=== PATIENT | female | born 1960 | race Two or more races ===

== ENCOUNTER 2017-06-01 05:20 | Inpatient (IN) | payer OTHER ==
[~2017-06-01] VITALS: Ht 162.6 cm; Wt 76.2 kg
[2017-06-01] MEDS ORDERED: oxyCODONE HCL SR 10MG TAB.SR.12H PO ONE (06:20)
[2017-06-01] MEDS ORDERED: CELECOXIB 100 MG CAPSULE ONE (06:20)
[2017-06-01] MEDS ORDERED: ACETAMINOPHEN 325 MG TABLET ONE (06:20)
[2017-06-01] MEDS ORDERED: CEFAZOLIN SODIUM/DEXTROSE,ISO 50 ML IV ONE (06:30)
[2017-06-01] MEDS ORDERED: TRANEXAMIC ACID 3,000 MG in SODIUM CHLORIDE IRRIG SOLUTION 70 ML IR ONE (07:30)
[2017-06-01] MEDS ORDERED: KETOROLAC TROMETHAMINE INJ 30 MG/ML VIAL ONE (09:36)
[2017-06-01] MEDS ORDERED: BACITRACIN 50000 UNITS/VIAL ONE (09:37)
[2017-06-01] MEDS ORDERED: BUPIVACAINE 0.5 % PF 150 MG/30 ML VIAL ONE (09:37)
[2017-06-01] MEDS ORDERED: MIDAZOLAM HCL 2 MG/2ML VIAL ONE (10:18)
[2017-06-01] MEDS ORDERED: FENTANYL PF 100MCG/2ML AMPUL ONE (10:18)
[2017-06-01 13:25] VITALS: BP 130/81
--- NOTE | 2017-06-01 13:30 | NUR ---
MS RN NOTES PATIENT BROUGHT FROM OR VIA BED, REPORT OBTAINED AT BEDSIDE. PATIENT ALERT, ORIENTED X4 IN STABLE CONDITION. PERIPHERAL IV INTACT PATENT ON LEFT FOREARM. RIGHT KNEE WITH NONE REMOVABLE DRESSING INTACT PATENT. NO DRAINAGE NOTED. PATIENT DENIES PAIN AT THIS TIME. PATIENT ORIENTED TO FLOOR AND ROOM. CALL LIGHT WITHIN REACH. WILL CONTINUE TO MONITOR CLOSELY.
[2017-06-01] MEDS ORDERED: ONDANSETRON HCL/PF 4 MG/2 ML VIAL IVP PRN (14:30)
[2017-06-01] MEDS ORDERED: NALOXONE HCL 0.4 MG/ML AMPUL IV PRN (14:30)
[2017-06-01] MEDS ORDERED: MAG HYDROX/AL HYDROX/SIMETH 30 ML UDC PO PRN (14:30)
[2017-06-01] MEDS ORDERED: PROMETHAZINE HCL 25 MG/ML AMPUL IM PRN (14:30)
[2017-06-01] MEDS ORDERED: MENTHOL/CETYLPYRD (CEPACOL) 1 LOZ LOZENGE MM PRN (14:30)
[2017-06-01] MEDS ORDERED: BISACODYL SUPP (10 MG) 10 MG/SUPP.RECT SUPP.RECT RC PRN (14:30)
[2017-06-01] MEDS ORDERED: AMBIEN 5 MG TABLET PO PRN (14:30)
[2017-06-01] MEDS ORDERED: diphenhydrAMINE HCL 25 MG CAPSULE PO PRN (14:30)
[2017-06-01] MEDS ORDERED: MAGNESIUM HYDROXIDE 30 ML UDC PO PRN (14:30)
[2017-06-01] MEDS ORDERED: CLONIDINE HCL 0.1 MG TABLET PO PRN (14:30)
[2017-06-01] MEDS: IV D5/0.45 NACL 1,000 ML IV PRN ×2 (14:34→21:01)
[2017-06-01 16:00] VITALS: BP 133/77
[2017-06-01] MEDS: ASPIRIN 325 MG TABLET PO SCH (16:17)
[2017-06-01] MEDS: DOCUSATE SODIUM 100 MG CAPSULE PO SCH (16:17)
[2017-06-01] MEDS: HYDROMORPHONE 1 MG/1 ML DISP.SYRIN IV PRN ×2 (16:20→20:35)
[2017-06-01] MEDS: oxyCODONE IR immediate release 5 MG PO PRN ×2 (18:43→22:50)
--- NOTE | 2017-06-01 19:45 | NUR ---
MS RN INITIAL NOTES PT IS IN BED AWAKE AND ALERT, ABLE TO MAKE NEEDS KNOWN. NO SIGNS OF SOB OR DISTRESS, BREATHING EVENLY AND UNLABORED ON RA. RIGHT LEG DRESSING INTACT AND NO SIGNS OF DRAINAGE. INCENTIVE SPIROMETER WAS GIVEN AND EDUCATION WAS DONE, PT VERBALIZED UNDERSTANDING. DENIES PAIN AT THIS TIME. BED IS IN LOW AND LOCKED POSITION, CALL LIGHT WITHIN REACH. WILL CONTINUE TO MONITOR PT
[2017-06-01 20:00] VITALS: BP 125/57
--- NOTE | 2017-06-01 20:22 | NUR ---
MS RN NOTES PATIENT IN BED RESTING NO SOB OR ACUTE DISTRESS NOTED. ALERT, ORIENTED X4. ALL DUE MEDICATIONS ADMINISTERED. ALL NEEDS MET. PAIN MANAGED WITH MEDICATION. ENDORSED CARE TO PM SHIFT.
[2017-06-01] MEDS: ANCEF 1 G in IV D5W 50 ML IV SCH (20:41)
[2017-06-01] MEDS: PANTOPRAZOLE 40 MG TABLET.DR PO SCH (21:01)
[2017-06-01 21:28] LABS: BASOPHILS % (AUTO) 0.3 % (0.0-2.0); EOSINOPHILS # (AUTO) 0.3 /CMM (0.0-0.7); EOSINOPHILS % (AUTO) 1.9 % (0.0-6.0); HEMATOCRIT 36 % (33-45); HEMOGLOBIN 11.9 g/dL (11.5-14.8); LYMPHOCYTES # (AUTO) 2.6 /CMM (0.8-4.8); LYMPHOCYTES % (AUTO) 14.5 % (20.0-44.0); MEAN CORPUSCULAR HEMOGLOBIN 25 PG (26.0-33.0); MEAN CORPUSCULAR HGB CONC 33 g/dl (31.0-36.0); MEAN CORPUSCULAR VOLUME 76 fL (82-100); MONOCYTES # (AUTO) 0.9 /CMM (0.1-1.30); MONOCYTES % (AUTO) 5.4 % (2.0-12.0); NEUTROPHILS # (AUTO) 13.7 /CMM (1.8-8.9); NEUTROPHILS % (AUTO) 77.9 % (43.0-81.0); PLATELET COUNT (AUTO) 320 /CMM (150-450); RDW COEFFICIENT OF VARIATION 14.6 (11.5-15.0); RED BLOOD CELL COUNT(AUTO) 4.76 MIL/uL (4.0-5.2); WHITE BLOOD COUNT (AUTO) 17.6 K/uL (4.3-11.0)
[2017-06-01 21:41] LABS: CALCIUM, SERUM 8.2 mg/dL (8.5-10.1); CREATININE 0.6 mg/dL (0.6-1.3)
[2017-06-02] MEDS: HYDROMORPHONE 1 MG/1 ML DISP.SYRIN IV PRN ×5 (00:22→22:14)
[2017-06-02] MEDS: ANCEF 1 G in IV D5W 50 ML IV SCH (02:13)
--- NOTE | 2017-06-02 06:27 | NUR ---
MS RN NOTES PATIENT IN BED RESTING NO SOB OR ACUTE DISTRESS NOTED. ALERT, ORIENTED X4. ALL DUE MEDICATIONS ADMINISTERED. ALL NEEDS WERE MET AND ANTICIPATED. PAIN MANAGED WITH MEDICATION. WILL ENDORSE TO DAYSHIFT.
[2017-06-02 08:00] VITALS: BP 123/71
[2017-06-02] MEDS: ASPIRIN 325 MG TABLET PO SCH ×2 (09:38→18:04)
[2017-06-02] MEDS: DOCUSATE SODIUM 100 MG CAPSULE PO SCH ×2 (09:38→18:04)
[2017-06-02] MEDS: oxyCODONE IR immediate release 5 MG PO PRN ×3 (09:45→20:12)
[2017-06-02] MEDS: IV D5/0.45 NACL 1,000 ML IV PRN (10:53)
[2017-06-02 16:00] VITALS: BP 140/79
[2017-06-02] MEDS: HYDROCODONE/APAP 10/325MG 1 EA TABLET PO PRN (16:20)
--- NOTE | 2017-06-02 17:00 | NUR ---
MED. X2 WITH DILAUDID IV,X 2 WITH OXY-IR AND X1 WITH NORCO.DR. VOGEL IN AND SPENT SOME TIME WITH PT.UP WITH PHY TX TOLERATED WELL.
--- NOTE | 2017-06-02 19:25 | NUR ---
RN OPENING NOTES PT RESTING IN BED. NO COMPLAINTS OF PAIN, SOB, OR DISTRESS AT THIS TIME. PT HAS A LEFT HAND #22 IV, PT AND INTACT. PT HAS A SHERIFF CATHETER, INTACT AND DRAINING WELL. SAFETY PRECAUTIONS IN PLACE, BED IN LOW, LOCKED POSITION, [id number] UP, CALL LIGHT WITHIN REACH. WILL CONTINUE TO MONITOR.
[2017-06-02 20:00] VITALS: BP 121/82
[2017-06-02] MEDS ORDERED: LACTULOSE 10 G/15 ML UDC (PYXIS) PO PRN (20:00)
[2017-06-02] MEDS ORDERED: MAGNESIUM HYDROXIDE 30 ML UDC PO ONE (20:00)
[2017-06-02] MEDS: PANTOPRAZOLE 40 MG TABLET.DR PO SCH (22:09)
[2017-06-03] MEDS: HYDROMORPHONE 1 MG/1 ML DISP.SYRIN IV PRN ×5 (04:12→20:09)
--- NOTE | 2017-06-03 07:00 | NUR ---
REPORT RECEIVED AT THE BEDSIDE. PATIENT IS SLEEPING. NO SOB OR DISTRESS NOTED AT THIS TIME. PATIENT DOES NOT APPEAR TO BE IN PAIN, NO FACIAL GRIMACE NOTED. BED IN A LOW POSITION, CALL LIGHT WITHIN PATIENT REACH. WILL CONTINUE TO MONITOR.
[2017-06-03 07:34] LABS: BASOPHILS % (AUTO) 0.2 % (0.0-2.0); EOSINOPHILS # (AUTO) 0.2 /CMM (0.0-0.7); EOSINOPHILS % (AUTO) 1.4 % (0.0-6.0); HEMATOCRIT 34 % (33-45); HEMOGLOBIN 11.3 g/dL (11.5-14.8); LYMPHOCYTES # (AUTO) 1.5 /CMM (0.8-4.8); LYMPHOCYTES % (AUTO) 9.3 % (20.0-44.0); MEAN CORPUSCULAR HEMOGLOBIN 25 PG (26.0-33.0); MEAN CORPUSCULAR HGB CONC 34 g/dl (31.0-36.0); MEAN CORPUSCULAR VOLUME 75 fL (82-100); MONOCYTES # (AUTO) 1.5 /CMM (0.1-1.30); MONOCYTES % (AUTO) 9.1 % (2.0-12.0); NEUTROPHILS # (AUTO) 13.2 /CMM (1.8-8.9); PLATELET COUNT (AUTO) 307 /CMM (150-450); RDW COEFFICIENT OF VARIATION 14.4 (11.5-15.0); RED BLOOD CELL COUNT(AUTO) 4.47 MIL/uL (4.0-5.2); WHITE BLOOD COUNT (AUTO) 16.5 K/uL (4.3-11.0)
--- NOTE | 2017-06-03 07:41 | NUR ---
RN CLOSING NOTES PT RESTING IN BED. NO COMPLAINTS OF PAIN, SOB, OR DISTRESS AT THIS TIME. PT HAS A LEFT HAND #22 IV, PT AND INTACT. PT HAS A SHERIFF CATHETER, INTACT AND DRAINING WELL. SAFETY PRECAUTIONS IN PLACE, BED IN LOW, LOCKED POSITION, [id number] UP, CALL LIGHT WITHIN REACH. WILL ENDORSE TO DAY SHIFT NURSE FOR CONTINUITY OF CARE.
[2017-06-03 08:00] VITALS: BP 116/76
[2017-06-03] MEDS: DOCUSATE SODIUM 100 MG CAPSULE PO SCH ×2 (08:01→16:04)
[2017-06-03] MEDS: ASPIRIN 325 MG TABLET PO SCH ×2 (08:01→16:04)
[2017-06-03 08:13] LABS: CALCIUM, SERUM 8.7 mg/dL (8.5-10.1); CREATININE 0.5 mg/dL (0.6-1.3); MAGNESIUM 2.4 mg/dL (1.8-2.4); PHOSPHORUS 2.8 mg/dL (2.5-4.9); POTASSIUM 4.4 mmol/L (3.5-5.1)
[2017-06-03] MEDS ORDERED: oxyCODONE IR immediate release 5 MG PO ONE (14:24)
[2017-06-03] MEDS: HYDROCODONE/APAP 10/325MG 1 EA TABLET PO PRN (15:45)
[2017-06-03 15:58] LABS: BASOPHILS # (AUTO) 0.1 /CMM (0.0-0.2); BASOPHILS % (AUTO) 0.3 % (0.0-2.0); EOSINOPHILS # (AUTO) 0.2 /CMM (0.0-0.7); EOSINOPHILS % (AUTO) 1.2 % (0.0-6.0); HEMATOCRIT 33 % (33-45); HEMOGLOBIN 10.9 g/dL (11.5-14.8); LYMPHOCYTES # (AUTO) 1.8 /CMM (0.8-4.8); LYMPHOCYTES % (AUTO) 10.6 % (20.0-44.0); MEAN CORPUSCULAR HEMOGLOBIN 25 PG (26.0-33.0); MEAN CORPUSCULAR HGB CONC 34 g/dl (31.0-36.0); MEAN CORPUSCULAR VOLUME 74 fL (82-100); MONOCYTES # (AUTO) 1.5 /CMM (0.1-1.30); MONOCYTES % (AUTO) 8.6 % (2.0-12.0); NEUTROPHILS # (AUTO) 13.8 /CMM (1.8-8.9); NEUTROPHILS % (AUTO) 79.3 % (43.0-81.0); PLATELET COUNT (AUTO) 308 /CMM (150-450); RDW COEFFICIENT OF VARIATION 13.4 (11.5-15.0); RED BLOOD CELL COUNT(AUTO) 4.42 MIL/uL (4.0-5.2); WHITE BLOOD COUNT (AUTO) 17.4 K/uL (4.3-11.0)
[2017-06-03 16:00] VITALS: BP 128/81
[2017-06-03] MEDS ORDERED: ACETAMINOPHEN 325 MG TABLET PO PRN (16:00)
[2017-06-03] MEDS ORDERED: ACET325T53 PO (16:26)
[2017-06-03] MEDS ORDERED: PANT40TA2 PO (16:26)
[2017-06-03] MEDS ORDERED: MAGN400O6 PO (16:26)
[2017-06-03] MEDS ORDERED: Hydrocodone/Apap 10/325MG PO (16:26)
[2017-06-03 18:43] LABS: APPEARANCE,URINE CLEAR (CLEAR); BILIRUBIN,URINE NEGATIVE (NEGATIVE); BLOOD, URINE 1+ Ery/uL (NEGATIVE); COLOR,URINE YELLOW (YELLOW); KETONES,URINE NEGATIVE (NEGATIVE); LEUKOCYTE ESTERASE ,URINE NEGATIVE (NEGATIVE); NITRITE, URINE NEGATIVE (NEGATIVE); PH,URINE 6.5 (5.0-8.0); PROTEIN,URINE NEGATIVE (NEGATIVE); UGLUCOSE NEGATIVE (NEGATIVE); UROBILINOGEN,URINE 0.2 EU/dL (0.2)
[2017-06-03 18:55] LABS: BACTERIA,URINE Rare /HPF (None Seen); RBC,URINE 0-2 /HPF (0-2); SQUAMOUS EPITHELIAL CELL,UR Few /HPF (None Seen); WBC,URINE 0-2 /HPF (0-3)
--- NOTE | 2017-06-03 19:30 | NUR ---
RN NOTES RECEIVED PATIENT IN BED AWAKE, AO X 3, ABLE TO MAKE NEEDS KNOWN. NO ACUTE DISTRESS NOTED. MONITORED FOR PAIN. RIGHT KNEE IMMOBILIZER IN PLACE. RIGHT KNEE DRESSING INTACT. IV SITE PATENT, INTACT; FLUSHED. SAFETY REMINDERS GIVEN. ON LOW BED WITH BILATERAL UPPER SIDE RAILS UP. CALL SANDOVAL WITHIN EASY REACH. WILL CONTINUE TO MONITOR.
[2017-06-03 20:00] VITALS: BP 117/77
[2017-06-03] MEDS: PANTOPRAZOLE 40 MG TABLET.DR PO SCH (22:04)
[2017-06-03] MEDS: oxyCODONE IR immediate release 5 MG PO PRN (22:05)
--- NOTE | 2017-06-04 06:00 | NUR ---
RN NOTES PATIENT ASLEEP, AROUSABLE. RESPIRATIONS EVEN. NO SIGNS OF PAIN NOTED. NEEDS ATTENDED. KEPT CLEAN AND DRY. SAFETY PRECAUTIONS AND COMFORT MEASURES IN PLACE. WILL GIVE REPORT TO DAY SHIFT FOR CONTINUITY OF CARE.
[2017-06-04 07:07] LABS: BASOPHILS # (AUTO) 0.1 /CMM (0.0-0.2); BASOPHILS % (AUTO) 0.4 % (0.0-2.0); EOSINOPHILS # (AUTO) 0.3 /CMM (0.0-0.7); EOSINOPHILS % (AUTO) 1.7 % (0.0-6.0); HEMATOCRIT 33 % (33-45); HEMOGLOBIN 10.8 g/dL (11.5-14.8); LYMPHOCYTES # (AUTO) 2.1 /CMM (0.8-4.8); LYMPHOCYTES % (AUTO) 12.1 % (20.0-44.0); MEAN CORPUSCULAR HEMOGLOBIN 25 PG (26.0-33.0); MEAN CORPUSCULAR HGB CONC 33 g/dl (31.0-36.0); MEAN CORPUSCULAR VOLUME 74 fL (82-100); MONOCYTES # (AUTO) 1.2 /CMM (0.1-1.30); NEUTROPHILS # (AUTO) 13.8 /CMM (1.8-8.9); NEUTROPHILS % (AUTO) 78.8 % (43.0-81.0); PLATELET COUNT (AUTO) 318 /CMM (150-450); RDW COEFFICIENT OF VARIATION 13.7 (11.5-15.0); RED BLOOD CELL COUNT(AUTO) 4.38 MIL/uL (4.0-5.2); WHITE BLOOD COUNT (AUTO) 17.5 K/uL (4.3-11.0)
[2017-06-04] MEDS: HYDROMORPHONE 1 MG/1 ML DISP.SYRIN IV PRN ×2 (07:23→14:57)
--- NOTE | 2017-06-04 07:31 | NUR ---
MS RN OPENING NOTES PT RECEIVED AWAKE IN BED A/O X4, SAME VERBALLY WITH COMPLAINTS OF PAIN ON RIGHT KNEE WITH INTENSITY OF 9/10, PRN DILAUDID 0.5MG IVP GIVEN, WILL FOLLOW-UP EFFECTIVENESS OF MEDICATION. IV ACCESS ON LEFT HAND #22 INTACT AND PATENT, FLUSHES WELL. BED IN LOW, LOCKED POSITION WITH SIDE-RAILS UP X2. CALL LIGHT WITHIN REACH. WILL CONTINUE TO MONITOR ACCORDINGLY.
[2017-06-04 08:00] VITALS: BP 108/72
[2017-06-04] MEDS: ASPIRIN 325 MG TABLET PO SCH ×2 (08:43→17:32)
[2017-06-04] MEDS: DOCUSATE SODIUM 100 MG CAPSULE PO SCH ×2 (08:43→17:32)
[2017-06-04] MEDS: HYDROCODONE/APAP 10/325MG 1 EA TABLET PO PRN ×3 (10:44→23:00)
[2017-06-04 11:53] LABS: FERRITIN 193 ng/mL (8-388)
[2017-06-04 12:11] LABS: IRON, SERUM 15 ug/dl (50-175); TOTAL IRON BINDING CAPACITY 296 ug/dl (250-450)
[2017-06-04 16:00] VITALS: BP 109/70
--- NOTE | 2017-06-04 19:13 | NUR ---
MS RN CLOSING NOTES PT AWAKE AND RESTING IN BED @ MODERATE HIGH BACKREST. A/O X4 AND ABLE TO MAKE NEEDS AND CONCERNS KNOWN. ALL NEEDS AND CARE ATTENDED WELL. IV ACCESS ON LEFT HAND #22 INTACT AND PATENT, FLUSHES WELL. KEPT BED IN LOW, LOCKED POSITION WITH SIDE-RAILS UP X2. CALL LIGHT WITHIN REACH. PT FOR DISCHARGE HOME TONIGHT, JUST WAITING FOR TO COME AND TO TAKE PT HOME. ENDORSED TO AUTOMOBILE BODY REPAIRER HELPER NURSE.
--- NOTE | 2017-06-04 19:30 | NUR ---
RN OPENING NOTES PATIENT IS IN BED, ALERT AND ORIENTED X4. NO SOB NOTED. RESPIRATIONS EVEN AND UNLABORED. IV ACCESS ON LEFT HAND #22 INTACT AND PATENT, FLUSHES WELL WITH NS, NO REDNESS OR INFILTRATION NOTED. PATIENT IS WAITING TO BE DISCHARGED, ALL PAPERS SIGNED FOR DISCHARGE. WAITING FOR TO COME AND TO TAKE PT HOME. BED IN LOW AND LOCKED POSITION, SIDE RAILS X2. CALL LIGHT WITHIN EASY REACH. WILL CONTINUE TO MONITOR AND ASSESS DURING THE SHIFT.
[2017-06-04 20:46] VITALS: BP 131/76
--- NOTE | 2017-06-04 21:00 | NUR ---
RN NOTES PATIENT C/O SWELLING IN RIGHT LEG AND STATES HER PAIN LEVEL 6/10. CALLED DR VAZ AND OBTAINED ORDER TO DISCHARGE PATIENT TILL TOMORROW. CONTINUE TO MONITOR.
[2017-06-04] MEDS: PANTOPRAZOLE 40 MG TABLET.DR PO SCH (21:58)
[2017-06-04] MEDS: oxyCODONE IR immediate release 5 MG PO PRN (21:58)
--- NOTE | 2017-06-04 22:00 | NUR ---
RN NOTE RECEIVED REPORT FROM BLUE MONSON, FOR CONTINUITY OF CARE. PATIENT RECEIVED IN BED, ALERT AND ORIENTED X 4, NO SOB NOTED, IN NO ACUTE DISTRESS. CALL LIGHT PLACED WITHIN EASY REACH. WILL CONTINUE TO MONITOR.
--- NOTE | 2017-06-04 22:00 | NUR ---
RN NOTES GIVE REPORT TO BLUE LEVI TO TAKE CARE OF THE PATIENT
--- NOTE | 2017-06-05 01:25 | NUR ---
RN NOTES INSERTED IV PERIPHERAL LINE G#22 ON PATIENT'S LEFT HAND, PATIENT TOLERATED PROCEDURE WELL, FLUSHED WITH SALINE, PATENT AND INTACT. WILL CONTINUE TO MONITOR.
[2017-06-05] MEDS: HYDROMORPHONE 1 MG/1 ML DISP.SYRIN IV PRN ×3 (01:37→13:06)
--- NOTE | 2017-06-05 07:25 | NUR ---
RN CLOSING NOTES PATIENT IN BED, ALERT AND ORIENTED X 4, NO C/O PAIN AT THIS TIME, IN NO ACUTE DISTRESS. NO SOB NOTED, BREATHING EVEN AND UNLABORED. ALL PATIENT'S NEEDS ATTENDED TO. CALL LIGHT PLACED WITHIN EASY REACH. BED PLACED IN LOW POSITION, LOCKED IN PLACE. WILL CONTINUE TO MONITOR PT. REPORT GIVEN TO AM NURSE FOR CONTINUITY OF CARE.
--- NOTE | 2017-06-05 07:30 | NUR ---
PT RECEIVED RESTING COMFORTABLY IN BED. NO S/S OR C/O PAIN OR DISTRESS NOTED. SIDE RAILS UP X2, CALL LIGHT LEFT WITHIN REACH. WILL CONTINUE PLAN OF CARE.
[2017-06-05 08:00] VITALS: BP 105/64
[2017-06-05] MEDS: DOCUSATE SODIUM 100 MG CAPSULE PO SCH (08:41)
[2017-06-05] MEDS: ASPIRIN 325 MG TABLET PO SCH (08:41)
[2017-06-05] MEDS: oxyCODONE IR immediate release 5 MG PO PRN (10:19)
[2017-06-05 16:00] VITALS: BP 131/97
--- NOTE | 2017-06-05 16:01 | NUR ---
AT BEDSIDE DR. VOGEL
--- NOTE | 2017-06-05 17:02 | NUR ---
DISCHARGE INSTRUCTIONS GIVEN ORDERED. ENCOURAGED TO FOLLOW UP WITH PMD INSTRUCTED. ALL QUESTIONS AND CONCERNS ADDRESSED. PATIENT VERBALIZED UNDERSTANDING. MEDICATION RECONCILIATION FORM COMPLETED. COPY GIVEN TO PATIENT. IV REMOVED WITH CATHETER INTACT. PRESSURE DRESSING APPLIED. PATIENT TAKEN TO VEHICLE WITH ALL PERSONAL BELONGINGS, ACCOMPANIED BY STAFF AND FAMILY MEMBER. NO DISTRESS NOTED AT TIME OF DEPARTURE.
== END 2017-06-05 16:43 | disposition home health service (06) | DRG 470 ==
LOC: DS 05:20 → MED 13:45
PROVIDERS: ADMIT Specialist; ATTEND Specialist
PROC: 0SRC0J9 Replacement of Right Knee Joint with Synthetic Substitute, Cemented, Open Approach (ICD-10-PCS; principal; 2017-06-01 11:35)
DX: M12.561 Traumatic arthropathy, right knee (principal); D72.829 Elevated white blood cell count, unspecified; K59.00 Constipation, unspecified; Z79.82 Long term (current) use of aspirin; X58.XXXA Exposure to other specified factors, initial encounter; Y99.0 Civilian activity done for income or pay
CPT/HCPCS: 36415; 71045-TC; 80048-TC; 81000-TC; 82728-TC; 83540-TC; 83735-TC; 84100-TC; 85025-TC; 86850-TC; 86921-TC; 87081-TC; 88305-TC; 88311-TC; 97110-TC; 97116-TC; 97530-TC; 97760-TC; A4217; A6402; C1713; J0690; J1170; J1885; J2250; J2704; J3010; J3490; J7060; L1830; Z7610

== ENCOUNTER 2018-02-22 06:40 | Inpatient (IN) | payer OTHER ==
[~2018-02-22] VITALS: Ht 162.6 cm; Wt 65.8 kg
[~2018-02-22 06:40] MED LIST: ACET325T53 PO; Hydrocodone/Apap 10/325MG PO; MAGN400O6 PO; PANT40TA2 PO
[2018-02-22] MEDS ORDERED: ACETAMINOPHEN 325 MG TABLET ONE (06:43)
[2018-02-22] MEDS ORDERED: CELECOXIB 100 MG CAPSULE ONE (06:43)
[2018-02-22] MEDS ORDERED: oxyCODONE HCL SR 10MG TAB.SR.12H PO ONE (06:43)
[2018-02-22] MEDS ORDERED: CEFAZOLIN SODIUM/DEXTROSE,ISO 50 ML IV ONE (06:43)
[2018-02-22] MEDS ORDERED: MIDAZOLAM HCL 2 MG/2ML VIAL ONE (08:45)
[2018-02-22] MEDS ORDERED: BUPIVACAINE 0.75% DEXT-PF 2 ML AMPUL ONE (08:45)
[2018-02-22] MEDS ORDERED: MORPHINE SULFATE/PF 10 MG/10ML (1MG/ML) AMPUL ONE (08:50)
[2018-02-22] MEDS ORDERED: TRANEXAMIC ACID 3,000 MG in SODIUM CHLORIDE IRRIG SOLUTION 70 ML IR ONE (09:30)
[2018-02-22 11:30] VITALS: BP 115/76
[2018-02-22] MEDS ORDERED: ZOFRAN 4mg/2ML IV PRN (11:30)
[2018-02-22] MEDS ORDERED: CLONIDINE HCL 0.1 MG TABLET PO PRN (11:30)
[2018-02-22] MEDS ORDERED: NALOXONE HCL 0.4 MG/ML AMPUL IV PRN (11:30)
[2018-02-22] MEDS ORDERED: MENTHOL/CETYLPYRD (CEPACOL) 1 LOZ LOZENGE MM PRN (11:30)
[2018-02-22] MEDS ORDERED: MAG HYDROX/AL HYDROX/SIMETH 30 ML UDC PO PRN (11:30)
[2018-02-22] MEDS ORDERED: MAGNESIUM HYDROXIDE 30 ML UDC PO PRN (11:30)
[2018-02-22] MEDS ORDERED: HYDROCODONE/APAP 10/325MG 1 EA TABLET PO PRN (11:30)
[2018-02-22] MEDS ORDERED: TYLENOL 650 MG TABLET PO PRN (11:30)
[2018-02-22] MEDS ORDERED: diphenhydrAMINE HCL 25 MG CAPSULE PO PRN (11:30)
[2018-02-22] MEDS ORDERED: IV D5/0.45 NACL 1,000 ML IV PRN (11:30)
[2018-02-22] MEDS ORDERED: MORPHINE SULFATE INJ 4 MG/ML DISP.SYRIN IM PRN (11:30)
[2018-02-22] MEDS ORDERED: COLACE 250 MG CAPSULE PO PRN (11:30)
[2018-02-22] MEDS ORDERED: ONDANSETRON HCL/PF 4 MG/2 ML VIAL IVP PRN (11:30)
--- NOTE | 2018-02-22 11:45 | NUR ---
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 On monitoring for v/s Q5mins x4, [id number] x3. Denies any pain at the moment but will continue to assess Q4hrs x4 as ordered. Afebrile. SpO2 ranges from 97-99% in room air with no SOB/labored breathing noted. Not in any type of distress. Patient is accompanied by Spouse. Order has already been faxed to pharmacy by OR nurse. Patient is awake and responsive. Will continue to monitor and assess patient. Safety measures in place.
--- NOTE | 2018-02-22 12:15 | NUR ---
AUGER OPERATOR - POST-OP V/S MONITORING 1125AM: 106/77 61 18 98.2 98% RA 1130AM: 110/77 64 18 99% RA 1135AM: 108/73 62 18 98% RA 1140Am: 115/76 62 18 98% RA 1155AM: 126/81 98 18 98% RA 1210PM: 111/73 77 18 97% RA
[2018-02-22] MEDS: HYDROMORPHONE INJ 2 MG/ML DISP.SYRIN SQ PRN ×2 (13:17→18:00)
--- NOTE | 2018-02-22 14:05 | NUR ---
SEAT COVER CUTTER - PT EVAL Patient was given pain mgmt prior to PT eval. Patient being evaluated by PT
[2018-02-22 16:00] VITALS: BP 116/74
[2018-02-22] MEDS ORDERED: IV D5/0.45 NACL 1,000 ML IV ONE (16:00)
[2018-02-22] MEDS: ANCEF 1 G in IV D5W 50 ML IV SCH (17:28)
[2018-02-22] MEDS: FAMOTIDINE (20 MG) 20 MG TABLET PO SCH (17:28)
[2018-02-22] MEDS: DOCUSATE SODIUM 100 MG CAPSULE PO SCH (17:28)
--- NOTE | 2018-02-22 18:45 | NUR ---
DRAG OUT WORKER - NOTES Dr. Otero at bedside to assess patient
[2018-02-22] MEDS ORDERED: HYDROCODONE/APAP 10/325MG 1 EA TABLET PO ONE ×2 (18:57→20:00)
--- NOTE | 2018-02-22 19:40 | NUR ---
CHEMICAL PROCESS ANALYST NOTE: PATIENT RESTING IN BED, NO ACUTE DISTRESS NOTED. BREATHING EVEN AND UNLABORED, NO SOB NOTED. IV TO LEFT WRIST INFUSING D5 1/2 NS AT 125 ML/HR. SHERIFF CATHETER IN PLACE, EMPTY AT THIS TIME. DRESSING IN PLACE, NO BLEEDING NOTED. INCENTIVE SPIROMETER AT BEDSIDE, INSTRUCTED TO USE AT LEAST EVERY HOUR WHILE AWAKE. BED LOCKED AND IN LOWEST POSITION, CALL LIGHT IN REACH. WILL CONTINUE TO MONITOR.
--- NOTE | 2018-02-22 19:55 | NUR ---
STRETCH PRESS OPERATOR CLOSING NOTES Patient remained in bed, awake and verbally responsive. Alert and oriented x4, Lithuanian/Chilean speaking. Complained of pain with help of pain mgmt. No further nausea and vomiting episodes. CPM was applied this afternoon. Dressing to be changed by Dr. Yogesh Jorge as ordered. On room air with no SOB/labored breathing noted. Not in any type of distress. Tele: SR; HR 75. Afebrile. All needs anticipated and met. Bed in locked and lowest position with call light within reach. Endorsed to oncoming shift nurse
[2018-02-22 20:00] VITALS: BP 126/83
[2018-02-22] MEDS ORDERED: DULCOLAX 10 MG/SUPP.RECT RC PRN (22:00)
[2018-02-22] MEDS ORDERED: SENOKOT 8.6 MG TABLET PO PRN (22:00)
[2018-02-22] MEDS: AMBIEN 5 MG TABLET PO PRN (23:22)
--- NOTE | 2018-02-22 23:30 | NUR ---
NUCLEAR MEDICAL TECH NOTE: PATIENT REQUEST FOR MEDICATION FOR SLEEPING, AMBIEN 5MG ORAL GIVEN PER MD ORDER. WILL CONTINUE TO MONITOR.
[2018-02-23] VITALS: BP 109/72
[2018-02-23] MEDS: ANCEF 1 G in IV D5W 50 ML IV SCH (01:04)
[2018-02-23 04:00] VITALS: BP 122/76
[2018-02-23] MEDS: HYDROMORPHONE INJ 2 MG/ML DISP.SYRIN SQ PRN ×4 (05:57→21:17)
[2018-02-23 06:16] LABS: BASOPHILS % (AUTO) 0.3 % (0.0-2.0); EOSINOPHILS % (AUTO) 1.2 % (0.0-6.0); HEMATOCRIT 41 % (33-45); HEMOGLOBIN 12.8 g/dL (11.5-14.8); LYMPHOCYTES # (AUTO) 1.9 /CMM (0.8-4.8); LYMPHOCYTES % (AUTO) 13.6 % (20.0-44.0); MEAN CORPUSCULAR HGB CONC 31 g/dl (31.0-36.0); MEAN CORPUSCULAR VOLUME 78 fL (82-100); MONOCYTES # (AUTO) 0.7 /CMM (0.1-1.30); MONOCYTES % (AUTO) 4.8 % (2.0-12.0); NEUTROPHILS # (AUTO) 11.4 /CMM (1.8-8.9); NEUTROPHILS % (AUTO) 80.1 % (43.0-81.0); PLATELET COUNT (AUTO) 325 /CMM (150-450); RDW COEFFICIENT OF VARIATION 13.8 (11.5-15.0); RED BLOOD CELL COUNT(AUTO) 5.23 MIL/uL (4.0-5.2); WHITE BLOOD COUNT (AUTO) 14.2 K/uL (4.3-11.0)
--- NOTE | 2018-02-23 06:20 | NUR ---
FORKLIFT TRUCK MECHANIC NOTE: PATIENT RESTING IN BED, NO ACUTE DISTRESS NOTED. BREATHING EVEN AND UNLABORED, NO SOB NOTED. IV TO LEFT WRIST INFUSING D5 1/2 NS AT 125 ML/HR. SHERIFF CATHETER IN PLACE. DRESSING IN PLACE, NO BLEEDING NOTED. PATIENT COMPLAINS OF PAIN TO RIGHT KNEE, 01/01, DILAUDID 1MG SQ PER MD ORDER. BED LOCKED AND IN LOWEST POSITION, CALL LIGHT IN REACH. WILL ENDORSE TO DAY NURSE TO CONTINUE WITH PLAN OF CARE. Addendum: 02/23/18 at 0632 by VIGNESH MOMIN RN TELE READING SR [id number]
[2018-02-23 08:12] VITALS: BP 126/78
[2018-02-23] MEDS: FAMOTIDINE (20 MG) 20 MG TABLET PO SCH ×2 (09:42→18:33)
[2018-02-23] MEDS: DOCUSATE SODIUM 100 MG CAPSULE PO SCH ×2 (09:42→18:33)
[2018-02-23] MEDS: ASPIRIN 325 MG TABLET PO SCH ×2 (09:42→18:33)
--- NOTE | 2018-02-23 10:45 | NUR ---
KNEE DRESSING DRY AND INTACT.F/CATH REMOVED AT THIS TIME AND VOIDED FEW MINUTES LATER WHEN UP WITH JEROMY.
[2018-02-23 12:00] VITALS: BP 103/69
[2018-02-23 16:00] VITALS: BP 114/77
--- NOTE | 2018-02-23 18:00 | NUR ---
MED. X 2 WITH DILAUDID INJECTION-STATES NOT INTERESTED IN NORCO MED DUE TO SIDE EFFECTS.VOMITED AFTER LUNCH APPROXIMATELY 250 ML UNDIGESTED FOOD,STATES NO NEED FOR ZOFRAN MED.UP WITH PHY.TX.TOLERATED WELL.
--- NOTE | 2018-02-23 19:35 | NUR ---
MS RN OPENING NOTE: RECEIVED PATIENT RESTING IN BED, A & O X4. NO ACUTE DISTRESS NOTED. BREATHING EVEN AND UNLABORED, NO SOB NOTED. IV TO LEFT WRIST, SL. INTACT/PATENT. SHERIFF CATH WAS REMOVED BY AM RN, PT VOIDED FINE AFTER THAT. RIGHT KNEE DRESSING IN PLACE, NO BLEEDING NOTED & DRESSING TO BE CHANGED BY MD. FWB TO RIGHT KNEE TOLERATED. INCENTIVE SPIROMETER AT BEDSIDE, INSTRUCTED TO USE AT LEAST EVERY HOUR WHILE AWAKE, PT VERBALIZED UNDERSTANDING. BED LOCKED AND IN LOWEST POSITION, SAFETY MEASURES IN PLACE. CALL LIGHT IN REACH. INSTRUCTED THE PT TO CALL FOR HELP WHEN NEEDED FOR SAFETY REASONS. WILL CONTINUE TO MONITOR CLOSELY.
[2018-02-23 20:00] VITALS: BP 119/73
--- NOTE | 2018-02-23 21:17 | NUR ---
PRN DILAUDID GIVEN PATIENT VERBALIZED OF HAVING RIGHT KNEE PAIN 6/10, WANTED TO TAKE DILAUDID ONLY AT THIS TIME. PRN DILAUDID GIVEN ORDERED. WILL REASSESS FOR EFFECTIVENESS.
[2018-02-23] MEDS: AMBIEN 5 MG TABLET PO PRN (22:47)
--- NOTE | 2018-02-23 22:47 | NUR ---
PRN AMBIEN GIVEN PATIENT REQUESTED TO GET AMBIEN FOR SLEEPLESSNESS. PRN AMBIEN GIVEN, WILL REASSESS FOR EFFECTIVENESS.
--- NOTE | 2018-02-23 23:05 | NUR ---
IV CATH REMOVED PATIENT C/O PAIN AT LEFT HAND IV SITE, MILD REDNESS NOTED. PATIENT WANTED THE IV CATH TO BE REMOVED & REFUSED TO INSERT ANOTHER IV CATHETER. DR VOGEL IS AWARE & MD ALSO STATED NOT TO REINSERT IV CATH, PER DR. VOGEL PT MIGHT BE DISCHARGED TOMORROW. IV CATH REMOVED. PRESSURE DRESSING APPLIED. WILL CONTINUE TO MONITOR.
--- NOTE | 2018-02-24 02:53 | NUR ---
MS RN NOTE PT NOTED TO BE SLEEPING COMFORTABLY AT THIS TIME. NO C/O PAIN TO RIGHT KNEE VERBALIZED SO FAR. JULIAN WAS EFFECTIVE. WILL CONTINUE TO MONITOR.
[2018-02-24] MEDS: HYDROMORPHONE INJ 2 MG/ML DISP.SYRIN SQ PRN ×4 (03:39→16:10)
--- NOTE | 2018-02-24 03:40 | NUR ---
PRN DILAUDID GIVEN PATIENT VERBALIZED OF HAVING RIGHT KNEE PAIN 7/10, WANTED TO TAKE DILAUDID ONLY AT THIS TIME. PRN DILAUDID GIVEN ORDERED. WILL REASSESS FOR EFFECTIVENESS.
[2018-02-24 06:12] LABS: CALCIUM, SERUM 8.5 mg/dL (8.5-10.1); CREATININE 0.6 mg/dL (0.6-1.3)
--- NOTE | 2018-02-24 06:31 | NUR ---
MS RN CLOSING NOTE: PATIENT IS RESTING IN BED, STABLE, A & O X4. NO ACUTE DISTRESS NOTED. BREATHING EVEN AND UNLABORED, NO SOB NOTED. PT VOIDED MULTIPLE TIMES AT NIGHT. RIGHT KNEE DRESSING IN PLACE, NO BLEEDING NOTED & DRESSING TO BE CHANGED BY MD. FWB TO RIGHT KNEE TOLERATED. INCENTIVE SPIROMETER AT BEDSIDE, PT REFUSED TO USE CPM MACHINE AT NIGHT DUE TO RIGHT KNEE PAIN. INSTRUCTED TO USE AT LEAST EVERY HOUR WHILE AWAKE, PT VERBALIZED UNDERSTANDING. BED LOCKED AND IN LOWEST POSITION, SAFETY MEASURES IN PLACE. CALL LIGHT IN REACH. WILL ENDORSE TO AM RN.
[2018-02-24 06:40] LABS: BASOPHILS # (AUTO) 0.1 /CMM (0.0-0.2); BASOPHILS % (AUTO) 0.6 % (0.0-2.0); EOSINOPHILS % (AUTO) 8.9 % (0.0-6.0); HEMATOCRIT 38 % (33-45); HEMOGLOBIN 12.1 g/dL (11.5-14.8); LYMPHOCYTES # (AUTO) 1.9 /CMM (0.8-4.8); LYMPHOCYTES % (AUTO) 15.8 % (20.0-44.0); MEAN CORPUSCULAR HGB CONC 32 g/dl (31.0-36.0); MEAN CORPUSCULAR VOLUME 78 fL (82-100); MONOCYTES # (AUTO) 0.7 /CMM (0.1-1.30); NEUTROPHILS # (AUTO) 8.4 /CMM (1.8-8.9); NEUTROPHILS % (AUTO) 68.7 % (43.0-81.0); PLATELET COUNT (AUTO) 305 /CMM (150-450); RDW COEFFICIENT OF VARIATION 13.6 (11.5-15.0); RED BLOOD CELL COUNT(AUTO) 4.85 MIL/uL (4.0-5.2); WHITE BLOOD COUNT (AUTO) 12.3 K/uL (4.3-11.0)
--- NOTE | 2018-02-24 07:30 | NUR ---
RN NOTES PATIENT A/OX3, C/O MODERATE THROBBING PAIN ON RIGHT KNEE, DILAUDID GIVEN ORDERED, NO DISTRESS OR DISCOMFORT NOTED, NEEDS ATTENDED TO AND MET, BSC AT BEDSIDE, SAFETY MEASURES IN PLACED, CALL LIGHT WITHIN REACH, WILL CONTINUE TO MONITOR. Addendum: 02/24/18 at 0802 by FLORINA SILVESTRE RN CORRECTION: DILAUDID GIVEN AT 07:46.
[2018-02-24 08:38] VITALS: BP 136/89
[2018-02-24] MEDS: FAMOTIDINE (20 MG) 20 MG TABLET PO SCH ×2 (08:44→16:07)
[2018-02-24] MEDS: ASPIRIN 325 MG TABLET PO SCH ×2 (08:44→16:07)
[2018-02-24] MEDS: DOCUSATE SODIUM 100 MG CAPSULE PO SCH ×2 (08:44→16:07)
[2018-02-24] MEDS ORDERED: ACET325T53 PO (11:15)
[2018-02-24] MEDS ORDERED: SENN-167 PO (11:15)
[2018-02-24] MEDS ORDERED: DOCU-141 PO (11:15)
[2018-02-24] MEDS ORDERED: Hydrocodone/Apap 10/325MG PO (11:15)
[2018-02-24] MEDS ORDERED: ASPI-992 PO (11:15)
[2018-02-24] MEDS ORDERED: BISA10SU8 RC (11:15)
[2018-02-24 16:00] VITALS: BP 135/86
--- NOTE | 2018-02-24 19:30 | NUR ---
BLUE MS DISCHARGE NOTES PATIENT DISCHARGED AT 1930 VIA PRIVATE TRANSPORTATION, IN STABLE CONDITION. PATIENT IS ALERT AND ORIENTED X4. VERBALLY RESPONSIVE. BREATHING EVEN AND UNLABORED. NO SOB NOTED. CURRENTLY WITH NO COMPLAINTS OF PAIN OR DISCOMFORT. NO FACIAL GRIMACING. DISCUSSED WITH PATIENT ABOUT DISCHARGE INSTRUCTIONS - VERBALIZED UNDERSTANDING AND SIGNED. ALL BELONGINGS ACCOUNTED FOR - INVENTORY LIST SIGNED. FINAL SKIN CHECK RENDERED. NO NEW SKIN ISSUES NOTED. PATIENT BROUGHT WALKER WITH HER. PATIENT WAS ASSISTED WITH OUT OF UNIT VIA WHEELCHAIR BY DONAVAN. Addendum: 02/24/18 at 2016 by ARELIS FROST RN PATIENT HAD NO IV SITE.
== END 2018-02-24 19:30 | disposition home health service (06) | DRG 489 ==
LOC: DS 06:40 → MED 11:11 → TELE 11:40 → MED 02-23 11:50
PROVIDERS: ADMIT Specialist; ATTEND Specialist
PROC: 0SPC09Z Removal of Liner from Right Knee Joint, Open Approach (ICD-10-PCS; principal; 2018-02-22 08:55)
PROC: 0SUV09Z Supplement Right Knee Joint, Tibial Surface with Liner, Open Approach (ICD-10-PCS; principal; 2018-02-22 08:55)
DX: T84.022A Instability of internal right knee prosthesis, initial encounter (principal); T84.89XA Other specified complication of internal orthopedic prosthetic devices, implants and grafts, initial encounter; Y83.9 Surgical procedure, unspecified as the cause of abnormal reaction of the patient, or of later complication, without mention of misadventure at the time of the procedure; M65.9 Synovitis and tenosynovitis, unspecified; D72.829 Elevated white blood cell count, unspecified; K21.9 Gastro-esophageal reflux disease without esophagitis; Y92.89 Other specified places as the place of occurrence of the external cause
CPT/HCPCS: 36415; 80048-TC; 85025-TC; 86850-TC; 86921-TC; 87081-TC; 94799-TC; 97110-TC; 97116-TC; 97530-TC; 97760-TC; A4217; J0690; J1170; J2250; J2274; J2405; J3490; J7060